=== PATIENT | male | born 2000 | race Hispanic/Latino ===

== ENCOUNTER 2021-10-30 15:22 | Inpatient (IN) | payer OTHER ==
[~2021-10-30] VITALS: Ht 149.9 cm; Wt 43.3 kg
[2021-10-30] MEDS ORDERED: SODIUM CHLORIDE 0.9% 1000ML 1,000 ML IV ONE (16:30)
[2021-10-30] MEDS ORDERED: ACETAMINOPHEN 325 MG SUPP PR ONE (16:30)
[2021-10-30] MEDS: SODIUM CHLORIDE 0.9% 1000ML 1,000 ML IV STA ×2 (16:30→17:58)
[2021-10-30 16:34] LABS: BASOPHILS % 0.2 % (0.0-1.0); HEMATOCRIT 50.8 % (38.2-49.6); HEMOGLOBIN 16.6 g/dL (14.0-18.0); LYMPHOCYTES # (AUTO) 0.6 (1.0-3.2); LYMPHOCYTES % 5.6 % (18.0-39.1); MEAN CORPUSCULAR HEMOGLOBIN 30.3 pg (28-32); MEAN CORPUSCULAR HGB CONC 32.7 g/dL (31-35); MEAN CORPUSCULAR VOLUME 92.9 fL (81-99); MONOCYTES # (AUTO) 0.7 (0.2-0.8); MONOCYTES % 6.4 % (4.4-11.3); NEUTROPHILS # (AUTO) 9.4 (2.1-6.9); NEUTROPHILS % 87.5 % (38.7-80.0); PLATELET COUNT 213 x10e3/uL (140-360); RED BLOOD COUNT 5.47 x10e6/uL (4.3-5.7); RED CELL DISTRIBUTION WIDTH 12.6 % (11.7-14.4)
[2021-10-30 16:44] LABS: INR 0.99
[2021-10-30 16:45] LABS: PARTIAL THROMBOPLASTIN TIME 33.5 seconds (23.8-35.5)
[2021-10-30 16:52] LABS: ALBUMIN 4.7 g/dL (3.5-5.0); ALBUMIN/GLOBULIN RATIO 1.2 (0.8-2.0); ANION GAP 18.7 mmol/L (8-16); CALCIUM 9.7 mg/dL (8.4-10.2); CREATININE, SERUM 0.87 mg/dL (0.72-1.25); POTASSIUM 4.7 mmol/L (3.5-5.1)
[2021-10-30 16:58] LABS: CREATINE KINASE MB 0.7 ng/mL (0-5.0)
[2021-10-30] MEDS ORDERED: SODIUM CHLORIDE 0.9% IV SCH (17:00)
[2021-10-30] MEDS ORDERED: SODIUM CHLORIDE 0.9% 1000ML 2,000 ML IV SCH (17:00)
[2021-10-30] MEDS ORDERED: SODIUM CHLORIDE 0.9% 1000ML 1,000 ML IV STA (17:12)
[2021-10-30 17:55] LABS: CLARITY,URINE SL CLOUDY (CLEAR); COLOR,URINE YELLOW (YELLOW); KETONES,URINE NEGATIVE (NEGATIVE); LEUKOCYTE ESTERASE ,URINE NEGATIVE (NEGATIVE); NITRITE,URINE NEGATIVE (NEGATIVE); PROTEIN,URINE DIPSTICK 2+ (NEGATIVE); URINE UROBILINOGEN 1 mg/dL (0.2 - 1)
[2021-10-30 18:03] LABS: AMORPHOUS SEDIMENT,URINE FEW (FEW); BACTERIA,URINE MODERATE /HPF; RBC,URINE 0-5 /HPF (0-5)
[2021-10-30] MEDS ORDERED: KETOROLAC TROMETHAMINE 30 MG/ML VIAL IV STA (20:01)
[2021-10-30] MEDS ORDERED: ONDANSETRON HCL INJ 2MG/ML 2ML 2 MG/ML VIAL IV STA (20:18)
[2021-10-30] MEDS ORDERED: ONDANSETRON HCL INJ 2MG/ML 2ML 2 MG/ML VIAL ONE (20:33)
[2021-10-30] MEDS ORDERED: IOPAMIDOL 370 MG/ML 100 ML INFUS..BTL INJ ONE (21:14)
[2021-10-30] MEDS ORDERED: PROMETHAZINE HCL (IM) 25 MG/ML VIAL IM ONE (21:52)
[2021-10-30] MEDS ORDERED: SODIUM CHLORIDE 0.9% 100 ML ONE (21:52)
[2021-10-30 23:20] VITALS: BP 116/68
[2021-10-30 23:58] VITALS: BP 116/68
[2021-10-30] MEDS ORDERED: PROAIR HFA INH8.5 GM IH (23:58)
[2021-10-30] MEDS ORDERED: BASE B,POLYETHYL1 GM PO (23:58)
[2021-10-30] MEDS ORDERED: BACLOFEN20 MG PO (23:58)
[2021-10-30] MEDS ORDERED: ONDANSETRON HCL8 MG PO (23:58)
[2021-10-30] MEDS ORDERED: DIAZEPAM2 MG PO (23:58)
[2021-10-30] MEDS ORDERED: MONTELUKAST SODI5 MG PO (23:58)
[2021-10-31] VITALS (8 sets, daily range): BP systolic 102–128; BP diastolic 56–92
[2021-10-31] MEDS ORDERED: ALBUTEROL2.5 MG/3 M NEB (00:05)
[2021-10-31] MEDS ORDERED: MELATONIN3 MG PO (00:06)
[2021-10-31] MEDS ORDERED: MELATONIN 5 MG TABLET PO PRN (01:00)
[2021-10-31] MEDS: SODIUM CHLORIDE 0.9% 1000ML 1,000 ML IV SCH ×2 (01:43→14:20)
[2021-10-31] MEDS: ONDANSETRON HCL INJ 2MG/ML 2ML 2 MG/ML VIAL IV PRN ×2 (01:49→08:37)
[2021-10-31] MEDS ORDERED: PROMETHAZINE 12.5MG/ NACL 0.9% 12.5 MG/50 ML BAG IV PRN (04:15)
[2021-10-31] MEDS: ACETAMINOPHEN 650 MG SUPP PR PRN ×3 (04:28→21:33)
[2021-10-31 07:28] LABS: BASOPHILS % 0.4 % (0.0-1.0); HEMATOCRIT 44.2 % (38.2-49.6); HEMOGLOBIN 14.8 g/dL (14.0-18.0); LYMPHOCYTES # (AUTO) 0.6 (1.0-3.2); LYMPHOCYTES % 5.7 % (18.0-39.1); MEAN CORPUSCULAR HEMOGLOBIN 30.1 pg (28-32); MEAN CORPUSCULAR HGB CONC 33.5 g/dL (31-35); MEAN CORPUSCULAR VOLUME 89.8 fL (81-99); MONOCYTES # (AUTO) 0.8 (0.2-0.8); MONOCYTES % 6.6 % (4.4-11.3); NEUTROPHILS # (AUTO) 9.8 (2.1-6.9); NEUTROPHILS % 86.9 % (38.7-80.0); PLATELET COUNT 181 x10e3/uL (140-360); RED BLOOD COUNT 4.92 x10e6/uL (4.3-5.7); RED CELL DISTRIBUTION WIDTH 12.7 % (11.7-14.4)
[2021-10-31 07:46] LABS: ALBUMIN 3.8 g/dL (3.5-5.0); ALBUMIN/GLOBULIN RATIO 1.2 (0.8-2.0); ANION GAP 15.5 mmol/L (8-16); CALCIUM 8.7 mg/dL (8.4-10.2); CREATININE, SERUM 0.63 mg/dL (0.72-1.25); POTASSIUM 3.5 mmol/L (3.5-5.1)
[2021-10-31] MEDS ORDERED: DOCUSATE SODIUM 100 MG CAP PO SCH (09:00)
[2021-10-31] MEDS ORDERED: SENNOSIDES 8.6 MG TAB PO SCH (09:00)
[2021-10-31] MEDS ORDERED: BISACODYL 10 MG SUPP PR PRN (09:30)
[2021-10-31] MEDS: METOCLOPRAMIDE HCL 10 MG/2ML VIAL IV SCH ×2 (09:46→16:25)
[2021-10-31] MEDS ORDERED: BISACODYL 10 MG SUPP PR ONE (10:00)
[2021-10-31] MEDS: DEXTROSE 5%/0.45% SOD CHL 1,000 ML IV SCH (15:43)
[2021-10-31] MEDS ORDERED: MONTELUKAST SODIUM 10 MG TAB PO SCH (21:00)
[2021-11-01] VITALS (22 sets, daily range): BP systolic 106–161; BP diastolic 42–97
[2021-11-01] MEDS: DEXTROSE 5%/0.45% SOD CHL 1,000 ML IV SCH ×3 (02:13→21:00)
[2021-11-01] MEDS: METOCLOPRAMIDE HCL 10 MG/2ML VIAL IV SCH ×3 (02:14→17:38)
[2021-11-01 07:19] LABS: BASOPHILS % 0.2 % (0.0-1.0); HEMATOCRIT 41.7 % (38.2-49.6); HEMOGLOBIN 14.2 g/dL (14.0-18.0); LYMPHOCYTES # (AUTO) 0.5 (1.0-3.2); LYMPHOCYTES % 5.5 % (18.0-39.1); MEAN CORPUSCULAR HEMOGLOBIN 29.8 pg (28-32); MEAN CORPUSCULAR HGB CONC 34.1 g/dL (31-35); MEAN CORPUSCULAR VOLUME 87.6 fL (81-99); MONOCYTES # (AUTO) 1.1 (0.2-0.8); MONOCYTES % 12.7 % (4.4-11.3); NEUTROPHILS % 81.4 % (38.7-80.0); PLATELET COUNT 175 x10e3/uL (140-360); RED BLOOD COUNT 4.76 x10e6/uL (4.3-5.7); RED CELL DISTRIBUTION WIDTH 12.4 % (11.7-14.4)
[2021-11-01 07:50] LABS: ALBUMIN 3.2 g/dL (3.5-5.0); ALBUMIN/GLOBULIN RATIO 1.2 (0.8-2.0); ANION GAP 13.2 mmol/L (8-16); CALCIUM 7.9 mg/dL (8.4-10.2); CREATININE, SERUM 0.63 mg/dL (0.72-1.25); MAGNESIUM 1.8 MG/DL (1.3-2.1); POTASSIUM 3.2 mmol/L (3.5-5.1)
[2021-11-01] MEDS: ACETAMINOPHEN 650 MG SUPP PR PRN (08:14)
[2021-11-01] MEDS ORDERED: POTASSIUM CHLORIDE 10MEQ/100ML 300 ML IV ONE (09:15)
[2021-11-01 11:12] LABS: AMYLASE 88 U/L (25-125); LIPASE 16 U/L (8-78)
[2021-11-01] MEDS: ACETAMINOPHEN 1000 MG/100 ML IV PRN ×2 (12:57→21:46)
[2021-11-01] MEDS: ALBUTEROL/IPRATROPIUM 3 ML NEB NEB PRN ×3 (13:20→23:00)
[2021-11-01 14:44] LABS: CREATINE KINASE 698 IU/L (30-200)
[2021-11-01 21:35] LABS: BASOPHILS % 0.1 % (0.0-1.0); HEMATOCRIT 42.2 % (38.2-49.6); HEMOGLOBIN 14.2 g/dL (14.0-18.0); LYMPHOCYTES % 14.4 % (18.0-39.1); MEAN CORPUSCULAR HEMOGLOBIN 30.3 pg (28-32); MEAN CORPUSCULAR HGB CONC 33.6 g/dL (31-35); MEAN CORPUSCULAR VOLUME 90.2 fL (81-99); MONOCYTES # (AUTO) 1.1 (0.2-0.8); MONOCYTES % 16.5 % (4.4-11.3); NEUTROPHILS # (AUTO) 4.7 (2.1-6.9); NEUTROPHILS % 68.7 % (38.7-80.0); PLATELET COUNT 170 x10e3/uL (140-360); RED BLOOD COUNT 4.68 x10e6/uL (4.3-5.7); RED CELL DISTRIBUTION WIDTH 12.3 % (11.7-14.4)
[2021-11-01 22:43] LABS: ALBUMIN 3.2 g/dL (3.5-5.0); ALBUMIN/GLOBULIN RATIO 1.1 (0.8-2.0); ANION GAP 13.1 mmol/L (8-16); CALCIUM 8.3 mg/dL (8.4-10.2); CREATININE, SERUM 0.61 mg/dL (0.72-1.25); POTASSIUM 3.1 mmol/L (3.5-5.1)
[2021-11-02] VITALS (57 sets, daily range): BP systolic 69–164; BP diastolic 29–125
[2021-11-02] MEDS: METOCLOPRAMIDE HCL 10 MG/2ML VIAL IV SCH ×3 (03:00→18:00)
[2021-11-02] MEDS: DEXTROSE 5%/0.45% SOD CHL 1,000 ML IV SCH ×2 (03:16→11:32)
[2021-11-02] MEDS: ACETAMINOPHEN 1000 MG/100 ML IV PRN (05:51)
[2021-11-02 06:38] LABS: BASOPHILS % 0.3 % (0.0-1.0); EOSINOPHILS % 0.2 % (0.0-6.0); HEMATOCRIT 39.7 % (38.2-49.6); HEMOGLOBIN 13.4 g/dL (14.0-18.0); LYMPHOCYTES # (AUTO) 1.2 (1.0-3.2); LYMPHOCYTES % 20.4 % (18.0-39.1); MEAN CORPUSCULAR HGB CONC 33.8 g/dL (31-35); MEAN CORPUSCULAR VOLUME 88.8 fL (81-99); MONOCYTES # (AUTO) 0.9 (0.2-0.8); MONOCYTES % 15.3 % (4.4-11.3); NEUTROPHILS # (AUTO) 3.8 (2.1-6.9); NEUTROPHILS % 63.6 % (38.7-80.0); RED BLOOD COUNT 4.47 x10e6/uL (4.3-5.7); RED CELL DISTRIBUTION WIDTH 12.1 % (11.7-14.4)
[2021-11-02 06:49] LABS: ALANINE AMINOTRANSFERASE 25 IU/L (0-55); ALBUMIN/GLOBULIN RATIO 0.9 (0.8-2.0); ALKALINE PHOSPHATASE 37 IU/L (40-150); ANION GAP 14.6 mmol/L (8-16); BLOOD UREA NITROGEN < 5 mg/dL (7-26); CALCIUM 8.1 mg/dL (8.4-10.2); CARBON DIOXIDE 22 mmol/L (22-29); CHLORIDE 103 mmol/L (98-107); CREATININE, SERUM 0.58 mg/dL (0.72-1.25); GLUCOSE 126 mg/dL (74-118); MAGNESIUM 1.7 MG/DL (1.3-2.1); SODIUM 137 mmol/L (136-145)
[2021-11-02 06:50] LABS: BUN/CREATININE RATIO 9 (6-25)
[2021-11-02 06:51] LABS: POTASSIUM 2.6 mmol/L (3.5-5.1)
[2021-11-02 07:08] LABS: PLATELET COUNT 143 x10e3/uL (140-360)
[2021-11-02] MEDS: POTASSIUM CHLORIDE 20MEQ/100ML 100 ML IV SCH ×2 (08:02→10:00)
[2021-11-02 09:00] LABS: PLATELET ESTIMATE ADEQUATE; PLATELET MORPHOLOGY COMMENT FEW EDTA CLUMPING; RBC MORPHOLOGY COMMENT NORMAL
[2021-11-02] MEDS ORDERED: METHYLPREDNISOLONE SOD SUCC 40 MG/ML VIAL 1ML IV NR ×2 (11:15→14:15)
[2021-11-02] MEDS: HEPARIN SOD (PORCINE) 5,000 UNIT/ML VIAL SC SCH ×2 (11:26→21:28)
[2021-11-02] MEDS ORDERED: MAGNESIUM SULF 1GRAM/DEXTROSE 100 ML IV ONE (12:00)
[2021-11-02] MEDS: ACETAMINOPHEN 650 MG SUPP PR PRN (12:55)
[2021-11-02] MEDS: ALBUTEROL/IPRATROPIUM 3 ML NEB NEB SCH ×2 (15:20→19:00)
[2021-11-02] MEDS ORDERED: POTASSIUM CHLORIDE 10MEQ/100ML 100 ML IV ONE (16:15)
[2021-11-02] MEDS ORDERED: SODIUM CHLORIDE 0.9% IV ONE (16:30)
[2021-11-02] MEDS ORDERED: ACETAMINOPHEN 1000 MG/100 ML IV PRN (16:30)
[2021-11-02] MEDS ORDERED: Morphine 2mg Syringe 2 MG/ML SYR IV ONE (16:30)
[2021-11-02] MEDS: Vancomycin IV 1 GM in SODIUM CHLORIDE 0.9% 250ML 250 ML IV SCH (17:00)
[2021-11-02 17:14] LABS: ABG HCO3 21 mmol/L (22-26); ABG PCO2 31 mmHg (35-45); ABG PH 7.43 (7.35-7.45); ABG PO2 82 mmHg (80-105); ABG TCO2 22
[2021-11-02] MEDS: POTASSIUM CHLORIDE 10MEQ/100ML 100 ML IV SCH ×3 (17:49→19:45)
[2021-11-02] MEDS ORDERED: [UNRECOGNIZED DRUG - OTHER] ONE (19:13)
[2021-11-02] MEDS ORDERED: ROCURONIUM ONE (19:13)
[2021-11-02] MEDS ORDERED: ROCURONIUM BROMIDE 1 ML IV ONE (19:15)
[2021-11-02] MEDS: FENTANYL 2000MCG/NS 250 250 ML IV PRN (19:27)
[2021-11-02] MEDS ORDERED: PROPOFOL IV EMULSION 10MG/ML 100 ML ONE (19:30)
[2021-11-02] MEDS ORDERED: ETOMIDATE 2 MG/ML 10 ML INJ IV STA (19:33)
[2021-11-02] MEDS ORDERED: PROPOFOL IV EMULSION 10MG/ML 100 ML IV PRN (19:45)
[2021-11-02] MEDS ORDERED: ROCURONIUM BROMIDE 10 MG/ML 5ML VIAL IV ONE (19:45)
[2021-11-02 20:20] LABS: ABG HCO3 22 mmol/L (22-26); ABG PCO2 40 mmHg (35-45); ABG PH 7.36 (7.35-7.45); ABG PO2 102 mmHg (80-105); ABG TCO2 23
[2021-11-02] MEDS: METHYLPREDNISOLONE SOD SUCC 40 MG/ML VIAL 1ML IV SCH ×2 (21:29→21:30)
[2021-11-02] MEDS: BUDESONIDE 0.5MG/2 ML NEB INH SCH (22:10)
[2021-11-02] MEDS: IPRATROPIUM BROMIDE 0.02% 2.5 ML NEB NEB SCH (22:15)
[2021-11-02] MEDS: MIDAZOLAM HCL 5MG/ML 10ML VIAL 100 ML IV PRN (23:06)
[2021-11-03] VITALS (90 sets, daily range): BP systolic 76–146; BP diastolic 37–121
[2021-11-03 00:22] LABS: ANION GAP 13.7 mmol/L (8-16); BLOOD UREA NITROGEN < 5 mg/dL (7-26); CALCIUM 7.3 mg/dL (8.4-10.2); CARBON DIOXIDE 19 mmol/L (22-29); CHLORIDE 107 mmol/L (98-107); CREATININE, SERUM 0.54 mg/dL (0.72-1.25); GLUCOSE 108 mg/dL (74-118); SODIUM 136 mmol/L (136-145)
[2021-11-03 00:31] LABS: BUN/CREATININE RATIO 9 (6-25); POTASSIUM 3.7 mmol/L (3.5-5.1)
[2021-11-03] MEDS: DEXTROSE 5%/0.45% SOD CHL 1,000 ML IV SCH ×2 (01:42→17:02)
[2021-11-03] MEDS: METOCLOPRAMIDE HCL 10 MG/2ML VIAL IV SCH ×3 (01:57→18:27)
[2021-11-03] MEDS: IPRATROPIUM BROMIDE 0.02% 2.5 ML NEB NEB SCH ×4 (02:00→20:30)
[2021-11-03] MEDS: LEVALBUTEROL HCL SOLN NEBU 0.63 MG/3 ML NEB INH SCH ×4 (02:00→19:00)
[2021-11-03] MEDS: Vancomycin IV 1 GM in SODIUM CHLORIDE 0.9% 250ML 250 ML IV SCH ×3 (04:49→21:51)
[2021-11-03] MEDS: METHYLPREDNISOLONE SOD SUCC 40 MG/ML VIAL 1ML IV SCH ×2 (05:01→20:42)
[2021-11-03 06:08] LABS: HEMATOCRIT 31.8 % (38.2-49.6); HEMOGLOBIN 10.4 g/dL (14.0-18.0); LYMPHOCYTES # (AUTO) 0.7 (1.0-3.2); MEAN CORPUSCULAR HEMOGLOBIN 29.8 pg (28-32); MEAN CORPUSCULAR HGB CONC 32.7 g/dL (31-35); MEAN CORPUSCULAR VOLUME 91.1 fL (81-99); MONOCYTES # (AUTO) 0.4 (0.2-0.8); MONOCYTES % 9.6 % (4.4-11.3); NEUTROPHILS # (AUTO) 2.8 (2.1-6.9); NEUTROPHILS % 72.1 % (38.7-80.0); PLATELET COUNT 168 x10e3/uL (140-360); RED BLOOD COUNT 3.49 x10e6/uL (4.3-5.7); RED CELL DISTRIBUTION WIDTH 12.5 % (11.7-14.4)
[2021-11-03 06:54] LABS: ALANINE AMINOTRANSFERASE 20 IU/L (0-55); ALBUMIN 2.3 g/dL (3.5-5.0); ALBUMIN/GLOBULIN RATIO 0.8 (0.8-2.0); ALKALINE PHOSPHATASE 34 IU/L (40-150); ANION GAP 12.2 mmol/L (8-16); BLOOD UREA NITROGEN < 5 mg/dL (7-26); CALCIUM 7.5 mg/dL (8.4-10.2); CARBON DIOXIDE 21 mmol/L (22-29); CHLORIDE 111 mmol/L (98-107); CREATININE, SERUM 0.51 mg/dL (0.72-1.25); GLUCOSE 129 mg/dL (74-118); MAGNESIUM 2.1 MG/DL (1.3-2.1); POTASSIUM 3.2 mmol/L (3.5-5.1); SODIUM 141 mmol/L (136-145)
[2021-11-03 06:55] LABS: BUN/CREATININE RATIO 10 (6-25)
[2021-11-03] MEDS: BUDESONIDE 0.5MG/2 ML NEB INH SCH ×2 (07:45→19:00)
[2021-11-03] MEDS ORDERED: POTASSIUM CHLORIDE 20MEQ/100ML 100 ML IV ONE ×2 (09:15→11:30)
[2021-11-03] MEDS: HEPARIN SOD (PORCINE) 5,000 UNIT/ML VIAL SC SCH (09:58)
[2021-11-03] MEDS: MIDAZOLAM HCL 5MG/ML 10ML VIAL 100 ML IV PRN ×2 (14:00→18:28)
[2021-11-03] MEDS ORDERED: ACETAMINOPHEN 1000 MG/100 ML IV PRN (19:00)
[2021-11-03] MEDS ORDERED: SOD CHL IV SCH (20:00)
[2021-11-03] MEDS ORDERED: POTASSIUM CHLORIDE IV SCH (20:00)
[2021-11-03] MEDS ORDERED: DEXTROSE IV SCH (20:00)
[2021-11-03] MEDS ORDERED: D5NS/KCL 20MEQ 1,000 ML IV ONE (20:29)
[2021-11-04] VITALS (23 sets, daily range): BP systolic 96–137; BP diastolic 51–89
[2021-11-04] MEDS: METOCLOPRAMIDE HCL 10 MG/2ML VIAL IV SCH (02:22)
[2021-11-04] MEDS: MIDAZOLAM HCL 5MG/ML 10ML VIAL 100 ML IV PRN ×2 (05:29→21:44)
[2021-11-04 05:48] LABS: BASOPHILS % 0.2 % (0.0-1.0); EOSINOPHILS % 0.2 % (0.0-6.0); HEMATOCRIT 35.9 % (38.2-49.6); HEMOGLOBIN 12.2 g/dL (14.0-18.0); LYMPHOCYTES # (AUTO) 1.7 (1.0-3.2); LYMPHOCYTES % 21.1 % (18.0-39.1); MEAN CORPUSCULAR HEMOGLOBIN 29.7 pg (28-32); MEAN CORPUSCULAR VOLUME 87.3 fL (81-99); MONOCYTES # (AUTO) 0.6 (0.2-0.8); MONOCYTES % 7.5 % (4.4-11.3); NEUTROPHILS # (AUTO) 5.7 (2.1-6.9); NEUTROPHILS % 70.6 % (38.7-80.0); PLATELET COUNT 253 x10e3/uL (140-360); RED BLOOD COUNT 4.11 x10e6/uL (4.3-5.7); RED CELL DISTRIBUTION WIDTH 12.7 % (11.7-14.4)
[2021-11-04 06:13] LABS: ALANINE AMINOTRANSFERASE 34 IU/L (0-55); ALBUMIN 2.6 g/dL (3.5-5.0); ALBUMIN/GLOBULIN RATIO 0.8 (0.8-2.0); ALKALINE PHOSPHATASE 41 IU/L (40-150); ANION GAP 14.2 mmol/L (8-16); BLOOD UREA NITROGEN < 5 mg/dL (7-26); CALCIUM 7.9 mg/dL (8.4-10.2); CARBON DIOXIDE 23 mmol/L (22-29); CHLORIDE 106 mmol/L (98-107); GLUCOSE 111 mg/dL (74-118); MAGNESIUM 1.7 MG/DL (1.3-2.1); POTASSIUM 3.2 mmol/L (3.5-5.1); SODIUM 140 mmol/L (136-145)
[2021-11-04 06:14] LABS: BUN/CREATININE RATIO 8 (6-25)
[2021-11-04] MEDS: LEVALBUTEROL HCL SOLN NEBU 0.63 MG/3 ML NEB INH SCH ×4 (08:25→18:47)
[2021-11-04] MEDS: IPRATROPIUM BROMIDE 0.02% 2.5 ML NEB NEB SCH ×4 (08:25→18:47)
[2021-11-04] MEDS: BUDESONIDE 0.5MG/2 ML NEB INH SCH ×2 (08:25→19:35)
[2021-11-04] MEDS: METHYLPREDNISOLONE SOD SUCC 40 MG/ML VIAL 1ML IV SCH ×2 (08:49→21:08)
[2021-11-04 09:29] LABS: ABG HCO3 24 mmol/L (22-26); ABG PCO2 30 mmHg (35-45); ABG PH 7.52 (7.35-7.45); ABG PO2 53 mmHg (80-105); ABG TCO2 25
[2021-11-04] MEDS: Vancomycin IV 1 GM in SODIUM CHLORIDE 0.9% 250ML 250 ML IV SCH ×2 (10:58→22:53)
[2021-11-04] MEDS ORDERED: KCL 20 MEQ PACKET/ ORAL SOLN NG ONE (17:00)
[2021-11-04] MEDS: FENTANYL 2000MCG/NS 250 250 ML IV PRN (22:53)
[2021-11-05] VITALS (35 sets, daily range): BP systolic 88–136; BP diastolic 39–89
[2021-11-05] MEDS: LEVALBUTEROL HCL SOLN NEBU 0.63 MG/3 ML NEB INH SCH ×4 (00:24→19:27)
[2021-11-05] MEDS: IPRATROPIUM BROMIDE 0.02% 2.5 ML NEB NEB SCH ×4 (00:25→19:27)
[2021-11-05] MEDS: MIDAZOLAM HCL 5MG/ML 10ML VIAL 100 ML IV PRN ×4 (03:16→19:12)
[2021-11-05 04:57] LABS: BASOPHILS % 0.3 % (0.0-1.0); EOSINOPHILS # (AUTO) 0.2 (0.0-0.4); EOSINOPHILS % 1.6 % (0.0-6.0); LYMPHOCYTES % 29.8 % (18.0-39.1); MEAN CORPUSCULAR HEMOGLOBIN 29.6 pg (28-32); MEAN CORPUSCULAR HGB CONC 32.4 g/dL (31-35); MEAN CORPUSCULAR VOLUME 91.1 fL (81-99); MONOCYTES # (AUTO) 0.8 (0.2-0.8); MONOCYTES % 8.1 % (4.4-11.3); NEUTROPHILS % 58.5 % (38.7-80.0); PLATELET COUNT 257 x10e3/uL (140-360); RED BLOOD COUNT 4.06 x10e6/uL (4.3-5.7); RED CELL DISTRIBUTION WIDTH 12.9 % (11.7-14.4)
[2021-11-05 05:16] LABS: ALBUMIN 2.8 g/dL (3.5-5.0); ALBUMIN/GLOBULIN RATIO 0.8 (0.8-2.0); ANION GAP 16.4 mmol/L (8-16); CALCIUM 8.5 mg/dL (8.4-10.2); CREATININE, SERUM 0.58 mg/dL (0.72-1.25); MAGNESIUM 1.7 MG/DL (1.3-2.1); POTASSIUM 3.4 mmol/L (3.5-5.1)
[2021-11-05] MEDS: BUDESONIDE 0.5MG/2 ML NEB INH SCH ×2 (06:57→19:20)
[2021-11-05] MEDS ORDERED: ACETAMINOPHEN 1000 MG/100 ML IV PRN (08:00)
[2021-11-05] MEDS: METHYLPREDNISOLONE SOD SUCC 40 MG/ML VIAL 1ML IV SCH (08:57)
[2021-11-05] MEDS ORDERED: ALTEPLASE RECOMBINANT 2 MG/2 ML VIAL IV PRN (10:15)
[2021-11-05] MEDS: Vancomycin IV 1 GM in SODIUM CHLORIDE 0.9% 250ML 250 ML IV SCH ×2 (11:16→23:02)
[2021-11-05 11:21] LABS: BAND NEUTROPHILS % (MANUAL) 1 %; EOSINOPHILS % (MANUAL) 1 % (0-7); LYMPHOCYTES % (MANUAL) 27 % (19-48); MONOCYTES % (MANUAL) 11 % (3.4-9.0); NEUTROPHILS % (MANUAL) 59 % (40-74); PLATELET ESTIMATE ADEQUATE; PLATELET MORPHOLOGY COMMENT NORMAL; RBC MORPHOLOGY COMMENT NORMAL
[2021-11-05 12:19] LABS: ABG HCO3 25 mmol/L (22-26); ABG PCO2 36 mmHg (35-45); ABG PH 7.45 (7.35-7.45); ABG PO2 57 mmHg (80-105); ABG TCO2 26
[2021-11-05] MEDS ORDERED: POTASSIUM CHLORIDE 20 MEQ TAB CR PO ONE (12:30)
[2021-11-05] MEDS: ACYCLOVIR SODIUM 500 MG in SODIUM CHLORIDE 0.9% 100 ML IV SCH ×2 (14:57→23:01)
[2021-11-06] VITALS (55 sets, daily range): BP systolic 82–134; BP diastolic 31–101
[2021-11-06] MEDS: MIDAZOLAM HCL 5MG/ML 10ML VIAL 100 ML IV PRN (02:16)
[2021-11-06] MEDS: LEVALBUTEROL HCL SOLN NEBU 0.63 MG/3 ML NEB INH SCH ×4 (03:20→19:55)
[2021-11-06] MEDS: IPRATROPIUM BROMIDE 0.02% 2.5 ML NEB NEB SCH ×4 (03:20→19:55)
[2021-11-06] MEDS: ACYCLOVIR SODIUM 500 MG in SODIUM CHLORIDE 0.9% 100 ML IV SCH (06:26)
[2021-11-06 06:31] LABS: BASOPHILS % 0.2 % (0.0-1.0); EOSINOPHILS # (AUTO) 0.2 (0.0-0.4); EOSINOPHILS % 2.9 % (0.0-6.0); HEMATOCRIT 30.7 % (38.2-49.6); LYMPHOCYTES # (AUTO) 2.2 (1.0-3.2); LYMPHOCYTES % 26.6 % (18.0-39.1); MEAN CORPUSCULAR HGB CONC 32.6 g/dL (31-35); MEAN CORPUSCULAR VOLUME 92.2 fL (81-99); MONOCYTES # (AUTO) 0.6 (0.2-0.8); MONOCYTES % 6.8 % (4.4-11.3); NEUTROPHILS # (AUTO) 4.9 (2.1-6.9); PLATELET COUNT 255 x10e3/uL (140-360); RED BLOOD COUNT 3.33 x10e6/uL (4.3-5.7); RED CELL DISTRIBUTION WIDTH 13.2 % (11.7-14.4)
[2021-11-06] MEDS: BUDESONIDE 0.5MG/2 ML NEB INH SCH ×2 (06:50→19:55)
[2021-11-06 06:58] LABS: ALBUMIN 2.1 g/dL (3.5-5.0); ALBUMIN/GLOBULIN RATIO 0.7 (0.8-2.0); ANION GAP 15.8 mmol/L (8-16); CALCIUM 7.2 mg/dL (8.4-10.2); CREATININE, SERUM 0.51 mg/dL (0.72-1.25); MAGNESIUM 1.5 MG/DL (1.3-2.1)
[2021-11-06 07:00] LABS: POTASSIUM 2.8 mmol/L (3.5-5.1)
[2021-11-06 09:18] LABS: EOSINOPHILS % (MANUAL) 4 % (0-7); LYMPHOCYTES % (MANUAL) 21 % (19-48); METAMYELOCYTES % (MANUAL) 1 % (0-0); MONOCYTES % (MANUAL) 9 % (3.4-9.0); MYELOCYTES % (MANUAL) 3 % (0-0); NEUTROPHILS % (MANUAL) 62 % (40-74); PLATELET ESTIMATE ADEQUATE; PLATELET MORPHOLOGY COMMENT NORMAL; RBC MORPHOLOGY COMMENT NORMAL
[2021-11-06] MEDS: METHYLPREDNISOLONE SOD SUCC 40 MG/ML VIAL 1ML IV SCH (09:18)
[2021-11-06] MEDS ORDERED: POTASSIUM CHLORIDE 20 MEQ TAB CR PO ONE ×2 (09:30→12:00)
[2021-11-06] MEDS ORDERED: KCL 20 MEQ PACKET/ ORAL SOLN NG ONE ×2 (10:00→12:00)
[2021-11-06] MEDS ORDERED: MAGNESIUM SULFATE 2GM/50ML 50 ML IV ONE (10:00)
[2021-11-06] MEDS ORDERED: KCL 20 MEQ PACKET/ ORAL SOLN PO ONE (10:00)
[2021-11-06] MEDS: Vancomycin IV 1 GM in SODIUM CHLORIDE 0.9% 250ML 250 ML IV SCH ×2 (10:47→21:47)
[2021-11-06] MEDS: ACYCLOVIR SODIUM INJ 500 MG in SODIUM CHLORIDE 0.9% 100 ML IV SCH ×2 (14:00→21:47)
[2021-11-06 15:49] LABS: ANION GAP 13.8 mmol/L (8-16); CALCIUM 7.8 mg/dL (8.4-10.2); CREATININE, SERUM 0.51 mg/dL (0.72-1.25); POTASSIUM 4.8 mmol/L (3.5-5.1)
[2021-11-06] MEDS: FENTANYL 2000MCG/NS 250 250 ML IV PRN (19:06)
[2021-11-06] MEDS: DEXMEDETOMIDINE 400MCG/NS100ML 100 ML IV PRN (20:50)
[2021-11-07] VITALS (55 sets, daily range): BP systolic 106–148; BP diastolic 46–86
[2021-11-07] MEDS: LEVALBUTEROL HCL SOLN NEBU 0.63 MG/3 ML NEB INH SCH ×4 (01:55→19:35)
[2021-11-07] MEDS: IPRATROPIUM BROMIDE 0.02% 2.5 ML NEB NEB SCH ×4 (01:55→19:35)
[2021-11-07] MEDS: FENTANYL 2000MCG/NS 250 250 ML IV PRN ×2 (03:21→12:37)
[2021-11-07] MEDS: DEXMEDETOMIDINE 400MCG/NS100ML 100 ML IV PRN ×2 (03:22→20:56)
[2021-11-07] MEDS: ACYCLOVIR SODIUM INJ 500 MG in SODIUM CHLORIDE 0.9% 100 ML IV SCH ×3 (05:37→22:05)
[2021-11-07] MEDS: BUDESONIDE 0.5MG/2 ML NEB INH SCH ×2 (07:15→19:35)
[2021-11-07] MEDS: METHYLPREDNISOLONE SOD SUCC 40 MG/ML VIAL 1ML IV SCH (08:14)
[2021-11-07 09:25] LABS: BASOPHILS % 0.2 % (0.0-1.0); EOSINOPHILS # (AUTO) 0.4 (0.0-0.4); EOSINOPHILS % 3.8 % (0.0-6.0); HEMATOCRIT 35.1 % (38.2-49.6); HEMOGLOBIN 11.4 g/dL (14.0-18.0); LYMPHOCYTES % 21.2 % (18.0-39.1); MEAN CORPUSCULAR HGB CONC 32.5 g/dL (31-35); MEAN CORPUSCULAR VOLUME 92.4 fL (81-99); MONOCYTES # (AUTO) 0.9 (0.2-0.8); MONOCYTES % 9.8 % (4.4-11.3); NEUTROPHILS # (AUTO) 5.7 (2.1-6.9); PLATELET COUNT 311 x10e3/uL (140-360); RED CELL DISTRIBUTION WIDTH 13.1 % (11.7-14.4)
[2021-11-07] MEDS ORDERED: MIDAZOLAM HCL 2 MG/2 ML VIAL ONE (09:47)
[2021-11-07 09:55] LABS: ALBUMIN 2.7 g/dL (3.5-5.0); ALBUMIN/GLOBULIN RATIO 0.8 (0.8-2.0); ANION GAP 13.7 mmol/L (8-16); CALCIUM 8.5 mg/dL (8.4-10.2); CREATININE, SERUM 0.55 mg/dL (0.72-1.25); POTASSIUM 3.7 mmol/L (3.5-5.1)
[2021-11-07] MEDS: Vancomycin IV 1 GM in SODIUM CHLORIDE 0.9% 250ML 250 ML IV SCH (10:22)
[2021-11-07] MEDS ORDERED: MIDAZOLAM HCL 2 MG/2 ML VIAL IV ONE (10:30)
[2021-11-07] MEDS ORDERED: POTASSIUM CHLORIDE 20MEQ/100ML 100 ML IV ONE (11:00)
[2021-11-07] MEDS: ACETAMINOPHEN 1000 MG/100 ML IV PRN ×2 (11:03→22:39)
[2021-11-07] MEDS ORDERED: MIDAZOLAM HCL 5MG/ML 10ML VIAL 100 ML IV ONE (11:23)
[2021-11-07] MEDS: SODIUM CHLORIDE 0.9% 1000ML 1,000 ML IV SCH ×2 (12:12→12:59)
[2021-11-07] MEDS: CLONAZEPAM 0.5 MG TAB PO SCH ×3 (12:28→21:00)
[2021-11-07] MEDS ORDERED: MIDAZOLAM HCL 5MG/ML 10ML VIAL 100 ML IV PRN (13:00)
[2021-11-07] MEDS: BACLOFEN 10 MG TAB PO SCH ×2 (14:33→22:05)
[2021-11-07] MEDS: QUETIAPINE FUMARATE 25 MG TAB PO SCH (17:30)
[2021-11-08] VITALS (81 sets, daily range): BP systolic 95–142; BP diastolic 43–101
[2021-11-08] MEDS: FENTANYL 2000MCG/NS 250 250 ML IV PRN (00:40)
[2021-11-08] MEDS: DEXMEDETOMIDINE 400MCG/NS100ML 100 ML IV PRN (00:40)
[2021-11-08] MEDS: IPRATROPIUM BROMIDE 0.02% 2.5 ML NEB NEB SCH ×5 (01:30→23:45)
[2021-11-08] MEDS: LEVALBUTEROL HCL SOLN NEBU 0.63 MG/3 ML NEB INH SCH ×5 (01:30→23:45)
[2021-11-08] MEDS: ACYCLOVIR SODIUM INJ 500 MG in SODIUM CHLORIDE 0.9% 100 ML IV SCH ×3 (05:48→22:59)
[2021-11-08] MEDS: BUDESONIDE 0.5MG/2 ML NEB INH SCH ×2 (06:45→19:00)
[2021-11-08 06:56] LABS: BASOPHILS % 0.2 % (0.0-1.0); EOSINOPHILS # (AUTO) 0.3 (0.0-0.4); EOSINOPHILS % 3.4 % (0.0-6.0); HEMATOCRIT 33.2 % (38.2-49.6); HEMOGLOBIN 10.9 g/dL (14.0-18.0); LYMPHOCYTES # (AUTO) 2.8 (1.0-3.2); MEAN CORPUSCULAR HEMOGLOBIN 30.3 pg (28-32); MEAN CORPUSCULAR HGB CONC 32.8 g/dL (31-35); MEAN CORPUSCULAR VOLUME 92.2 fL (81-99); MONOCYTES # (AUTO) 1.1 (0.2-0.8); MONOCYTES % 11.7 % (4.4-11.3); NEUTROPHILS # (AUTO) 4.5 (2.1-6.9); PLATELET COUNT 338 x10e3/uL (140-360)
[2021-11-08 07:39] LABS: ALBUMIN 2.8 g/dL (3.5-5.0); ALBUMIN/GLOBULIN RATIO 0.8 (0.8-2.0); ANION GAP 16.3 mmol/L (8-16); CALCIUM 8.6 mg/dL (8.4-10.2); CREATININE, SERUM 0.54 mg/dL (0.72-1.25); MAGNESIUM 1.9 MG/DL (1.3-2.1); POTASSIUM 3.3 mmol/L (3.5-5.1)
[2021-11-08 07:52] LABS: AMYLASE 172 U/L (25-125); LIPASE 40 U/L (8-78)
[2021-11-08] MEDS: CLONAZEPAM 0.5 MG TAB PO SCH ×3 (09:00→21:02)
[2021-11-08] MEDS: QUETIAPINE FUMARATE 25 MG TAB PO SCH ×3 (09:39→17:26)
[2021-11-08] MEDS: PREDNISONE 10 MG TAB PO SCH (09:39)
[2021-11-08] MEDS: BACLOFEN 10 MG TAB PO SCH ×3 (09:39→21:02)
[2021-11-08] MEDS ORDERED: CLONAZEPAM 0.5 MG TAB PO ONE (09:40)
[2021-11-08] MEDS: KCL 20 MEQ PACKET/ ORAL SOLN NG PRN (09:42)
[2021-11-08] MEDS ORDERED: ACETAMINOPHEN 1000 MG/100 ML IV PRN (12:45)
[2021-11-08 12:48] LABS: ABG HCO3 27 mmol/L (22-26); ABG PCO2 41 mmHg (35-45); ABG PH 7.42 (7.35-7.45); ABG PO2 77 mmHg (80-105); ABG TCO2 28
[2021-11-08] MEDS: ACETAMINOPHEN 1000 MG/100 ML IV PRN ×3 (13:20→19:41)
[2021-11-08] MEDS ORDERED: KETOROLAC TROMETHAMINE 30 MG/ML VIAL IV ONE (18:30)
[2021-11-08] MEDS ORDERED: Vancomycin IV 1 GM in SODIUM CHLORIDE 0.9% 250ML 250 ML IV STA (20:40)
[2021-11-09] VITALS (52 sets, daily range): BP systolic 112–165; BP diastolic 47–101
[2021-11-09] MEDS: METOCLOPRAMIDE HCL 10 MG/2ML VIAL IV SCH ×2 (03:59→11:33)
[2021-11-09] MEDS: ACYCLOVIR SODIUM INJ 500 MG in SODIUM CHLORIDE 0.9% 100 ML IV SCH (06:11)
[2021-11-09] MEDS: LEVALBUTEROL HCL SOLN NEBU 0.63 MG/3 ML NEB INH SCH ×4 (06:40→23:38)
[2021-11-09] MEDS: IPRATROPIUM BROMIDE 0.02% 2.5 ML NEB NEB SCH ×4 (06:40→23:38)
[2021-11-09] MEDS: BUDESONIDE 0.5MG/2 ML NEB INH SCH ×2 (06:50→19:18)
[2021-11-09 06:53] LABS: BASOPHILS % 0.3 % (0.0-1.0); EOSINOPHILS # (AUTO) 0.1 (0.0-0.4); HEMOGLOBIN 12.3 g/dL (14.0-18.0); LYMPHOCYTES % 15.8 % (18.0-39.1); MEAN CORPUSCULAR HEMOGLOBIN 29.9 pg (28-32); MEAN CORPUSCULAR HGB CONC 33.2 g/dL (31-35); MONOCYTES # (AUTO) 1.1 (0.2-0.8); NEUTROPHILS % 71.4 % (38.7-80.0); PLATELET COUNT 392 x10e3/uL (140-360); RED BLOOD COUNT 4.11 x10e6/uL (4.3-5.7)
[2021-11-09 07:16] LABS: % IRON SATURATION 9 % (15-50); IRON 25 ug/dL (65-175); TOTAL IRON BINDING CAPACITY 294 ug/dL (261-478); TRANSFERRIN 210 mg/dL (174-364)
[2021-11-09] MEDS ORDERED: KETOROLAC TROMETHAMINE 30 MG/ML VIAL IV STA (07:22)
[2021-11-09 08:04] LABS: ALBUMIN 3.1 g/dL (3.5-5.0); ALBUMIN/GLOBULIN RATIO 0.8 (0.8-2.0); ANION GAP 19.5 mmol/L (8-16); CALCIUM 8.7 mg/dL (8.4-10.2); CREATININE, SERUM 0.61 mg/dL (0.72-1.25); POTASSIUM 3.5 mmol/L (3.5-5.1)
[2021-11-09] MEDS: ACETAMINOPHEN 1000 MG/100 ML IV PRN (08:04)
[2021-11-09] MEDS: QUETIAPINE FUMARATE 25 MG TAB PO SCH ×2 (08:50→16:31)
[2021-11-09] MEDS: PREDNISONE 10 MG TAB PO SCH (08:51)
[2021-11-09] MEDS: BACLOFEN 10 MG TAB PO SCH ×3 (08:51→21:12)
[2021-11-09] MEDS: CLONAZEPAM 0.5 MG TAB PO SCH (08:51)
[2021-11-09] MEDS: IRON SUCROSE 100 MG in SODIUM CHLORIDE 0.9% 100 ML IV SCH (11:56)
[2021-11-09 16:53] LABS: FREE THYROXINE INDEX 2.8395 (1.4-3.8); THYROID STIMULATING HORMONE 1.057 uIU/mL (0.350-4.940)
[2021-11-09 17:02] LABS: ABG HCO3 23 mmol/L (22-26); ABG PCO2 34 mmHg (35-45); ABG PH 7.44 (7.35-7.45); ABG PO2 68 mmHg (80-105); ABG TCO2 24
[2021-11-09 17:31] LABS: HIV 1&2 AB SCREEN ***REACTIVE*** (NONREACTIVE)
[2021-11-09] MEDS: SULFAMETHOXAZOLE IV SCH (20:00)
[2021-11-09] MEDS: TRIMETHOPRIM IV SCH (20:00)
[2021-11-09] MEDS: DEXTROSE 5% IV SCH (20:00)
[2021-11-10] VITALS (24 sets, daily range): BP systolic 128–156; BP diastolic 53–83
[2021-11-10] MEDS: TRIMETHOPRIM IV SCH (04:00)
[2021-11-10] MEDS: SULFAMETHOXAZOLE IV SCH (04:00)
[2021-11-10] MEDS: DEXTROSE 5% IV SCH (04:00)
[2021-11-10 05:53] LABS: BASOPHILS # (AUTO) 0.1 (0.0-0.1); BASOPHILS % 0.3 % (0.0-1.0); EOSINOPHILS # (AUTO) 0.1 (0.0-0.4); EOSINOPHILS % 0.7 % (0.0-6.0); HEMATOCRIT 40.3 % (38.2-49.6); HEMOGLOBIN 13.1 g/dL (14.0-18.0); LYMPHOCYTES % 11.6 % (18.0-39.1); MEAN CORPUSCULAR HEMOGLOBIN 29.8 pg (28-32); MEAN CORPUSCULAR HGB CONC 32.5 g/dL (31-35); MEAN CORPUSCULAR VOLUME 91.8 fL (81-99); MONOCYTES # (AUTO) 1.4 (0.2-0.8); MONOCYTES % 8.3 % (4.4-11.3); NEUTROPHILS # (AUTO) 13.2 (2.1-6.9); NEUTROPHILS % 76.8 % (38.7-80.0); PLATELET COUNT 442 x10e3/uL (140-360); RED BLOOD COUNT 4.39 x10e6/uL (4.3-5.7); RED CELL DISTRIBUTION WIDTH 13.3 % (11.7-14.4)
[2021-11-10 06:26] LABS: ANION GAP 22.8 mmol/L (8-16); CALCIUM 9.3 mg/dL (8.4-10.2); CREATININE, SERUM 0.66 mg/dL (0.72-1.25); POTASSIUM 3.8 mmol/L (3.5-5.1)
[2021-11-10 06:50] LABS: ALBUMIN 3.5 g/dL (3.5-5.0); ALBUMIN/GLOBULIN RATIO 0.8 (0.8-2.0); MAGNESIUM 2.3 MG/DL (1.3-2.1)
[2021-11-10] MEDS: BUDESONIDE 0.5MG/2 ML NEB INH SCH ×2 (07:01→18:57)
[2021-11-10] MEDS: IPRATROPIUM BROMIDE 0.02% 2.5 ML NEB NEB SCH ×3 (07:01→18:40)
[2021-11-10] MEDS: LEVALBUTEROL HCL SOLN NEBU 0.63 MG/3 ML NEB INH SCH ×3 (07:01→18:40)
[2021-11-10] MEDS: ACETAMINOPHEN 650 MG SUPP PR PRN (07:49)
[2021-11-10] MEDS: BACLOFEN 10 MG TAB PO SCH ×3 (08:58→21:45)
[2021-11-10] MEDS: PREDNISONE 10 MG TAB PO SCH (08:58)
[2021-11-10] MEDS: QUETIAPINE FUMARATE 25 MG TAB PO SCH (08:58)
[2021-11-10] MEDS: IRON SUCROSE 100 MG in SODIUM CHLORIDE 0.9% 100 ML IV SCH (10:02)
[2021-11-10] MEDS ORDERED: TRIMETHOPRIM/SULFAMETHOXAZOLE 160-800 MG TAB PO SCH (10:45)
[2021-11-10] MEDS: ACETAMINOPHEN 325 MG TAB PO PRN (18:41)
[2021-11-11] VITALS (22 sets, daily range): BP systolic 99–168; BP diastolic 65–134
[2021-11-11] MEDS: IPRATROPIUM BROMIDE 0.02% 2.5 ML NEB NEB SCH ×4 (01:35→19:45)
[2021-11-11] MEDS: LEVALBUTEROL HCL SOLN NEBU 0.63 MG/3 ML NEB INH SCH ×4 (01:35→19:45)
[2021-11-11] MEDS: ACETAMINOPHEN 325 MG TAB PO PRN (05:17)
[2021-11-11] MEDS: BUDESONIDE 0.5MG/2 ML NEB INH SCH ×2 (07:45→19:45)
[2021-11-11] MEDS: BACLOFEN 10 MG TAB PO SCH ×3 (08:43→20:17)
[2021-11-11 08:52] LABS: BASOPHILS # (AUTO) 0.1 (0.0-0.1); BASOPHILS % 0.4 % (0.0-1.0); EOSINOPHILS # (AUTO) 0.2 (0.0-0.4); EOSINOPHILS % 1.5 % (0.0-6.0); HEMATOCRIT 43.3 % (38.2-49.6); HEMOGLOBIN 13.9 g/dL (14.0-18.0); LYMPHOCYTES % 12.1 % (18.0-39.1); MEAN CORPUSCULAR HEMOGLOBIN 30.2 pg (28-32); MEAN CORPUSCULAR HGB CONC 32.1 g/dL (31-35); MEAN CORPUSCULAR VOLUME 94.1 fL (81-99); MONOCYTES # (AUTO) 1.2 (0.2-0.8); MONOCYTES % 7.4 % (4.4-11.3); NEUTROPHILS # (AUTO) 12.6 (2.1-6.9); NEUTROPHILS % 76.8 % (38.7-80.0); PLATELET COUNT 408 x10e3/uL (140-360); RED CELL DISTRIBUTION WIDTH 13.6 % (11.7-14.4)
[2021-11-11 09:24] LABS: ALBUMIN 3.8 g/dL (3.5-5.0); ALBUMIN/GLOBULIN RATIO 0.8 (0.8-2.0); ANION GAP 21.4 mmol/L (8-16); CALCIUM 9.9 mg/dL (8.4-10.2); CREATININE, SERUM 0.67 mg/dL (0.72-1.25); POTASSIUM 4.4 mmol/L (3.5-5.1)
[2021-11-11] MEDS: IRON SUCROSE 100 MG in SODIUM CHLORIDE 0.9% 100 ML IV SCH (10:41)
[2021-11-11] MEDS: ACETAMINOPHEN 650 MG SUPP PR PRN (15:06)
[2021-11-11] MEDS: DIAZEPAM 2 MG TAB PO SCH (16:10)
[2021-11-12] VITALS (22 sets, daily range): BP systolic 113–148; BP diastolic 61–90
[2021-11-12] MEDS: ACETAMINOPHEN 650 MG SUPP PR PRN (02:25)
[2021-11-12] MEDS: LEVALBUTEROL HCL SOLN NEBU 0.63 MG/3 ML NEB INH SCH ×4 (03:50→19:00)
[2021-11-12] MEDS: IPRATROPIUM BROMIDE 0.02% 2.5 ML NEB NEB SCH ×4 (03:52→19:00)
[2021-11-12] MEDS: MONTELUKAST SODIUM 10 MG TAB PO SCH (04:05)
[2021-11-12] MEDS ORDERED: METOCLOPRAMIDE HCL 10 MG/2ML VIAL IV SCH (06:00)
[2021-11-12] MEDS: METOCLOPRAMIDE HCL 10 MG/2ML VIAL IV SCH ×4 (06:05→23:54)
[2021-11-12] MEDS: BUDESONIDE 0.5MG/2 ML NEB INH SCH ×2 (07:00→19:00)
[2021-11-12 08:08] LABS: BASOPHILS # (AUTO) 0.1 (0.0-0.1); BASOPHILS % 0.4 % (0.0-1.0); EOSINOPHILS # (AUTO) 0.3 (0.0-0.4); EOSINOPHILS % 2.4 % (0.0-6.0); HEMOGLOBIN 13.3 g/dL (14.0-18.0); LYMPHOCYTES % 14.4 % (18.0-39.1); MEAN CORPUSCULAR HEMOGLOBIN 30.2 pg (28-32); MEAN CORPUSCULAR HGB CONC 32.4 g/dL (31-35); MEAN CORPUSCULAR VOLUME 93.2 fL (81-99); MONOCYTES # (AUTO) 1.2 (0.2-0.8); MONOCYTES % 8.5 % (4.4-11.3); NEUTROPHILS # (AUTO) 10.2 (2.1-6.9); NEUTROPHILS % 73.3 % (38.7-80.0); PLATELET COUNT 384 x10e3/uL (140-360); RED CELL DISTRIBUTION WIDTH 13.3 % (11.7-14.4)
[2021-11-12] MEDS: DIAZEPAM 2 MG TAB PO SCH ×2 (08:22→16:24)
[2021-11-12] MEDS: BACLOFEN 10 MG TAB PO SCH ×3 (08:22→21:04)
[2021-11-12 08:23] LABS: ANION GAP 17.8 mmol/L (8-16); CALCIUM 9.3 mg/dL (8.4-10.2); CREATININE, SERUM 0.53 mg/dL (0.72-1.25); POTASSIUM 3.8 mmol/L (3.5-5.1)
[2021-11-12] MEDS ORDERED: MAGNESIUM HYDROXIDE 30 ML UDC NG ONE (11:00)
[2021-11-12] MEDS: GUAIFENESIN 200 MG/10 ML UDC NG PRN (16:35)
[2021-11-12] MEDS: ACETAMINOPHEN 325 MG/10 ML UDC PO PRN (16:36)
[2021-11-13] VITALS (8 sets, daily range): BP systolic 98–124; BP diastolic 52–85
[2021-11-13] MEDS: IPRATROPIUM BROMIDE 0.02% 2.5 ML NEB NEB SCH ×3 (01:05→13:00)
[2021-11-13] MEDS: LEVALBUTEROL HCL SOLN NEBU 0.63 MG/3 ML NEB INH SCH ×3 (01:05→13:00)
[2021-11-13] MEDS: METOCLOPRAMIDE HCL 10 MG/2ML VIAL IV SCH ×3 (05:32→17:53)
[2021-11-13] MEDS: BUDESONIDE 0.5MG/2 ML NEB INH SCH ×2 (06:30→19:20)
[2021-11-13] MEDS: MONTELUKAST SODIUM 10 MG TAB PO SCH (08:32)
[2021-11-13] MEDS: DIAZEPAM 2 MG TAB PO SCH ×2 (08:32→16:29)
[2021-11-13] MEDS: BACLOFEN 10 MG TAB PO SCH ×3 (08:32→20:54)
[2021-11-13] MEDS ORDERED: LIDOCAINE HCL 2% LOCAL INJ 5 ML SDV VIAL INJ ONE (11:51)
[2021-11-13] MEDS ORDERED: PROPOFOL IV EMULSION 10 MG/ML 20 ML VIAL ONE (11:51)
[2021-11-13] MEDS ORDERED: DEXTROSE 5%/0.45% SOD CHL 1,000 ML IV ONE (17:00)
[2021-11-13] MEDS: HYDROMORPHONE 1MG/1ML INJ IV PRN ×2 (17:11→23:00)
[2021-11-14] VITALS (8 sets, daily range): BP systolic 108–144; BP diastolic 57–76
[2021-11-14] MEDS: IPRATROPIUM BROMIDE 0.02% 2.5 ML NEB NEB SCH ×4 (00:57→19:55)
[2021-11-14] MEDS: LEVALBUTEROL HCL SOLN NEBU 0.63 MG/3 ML NEB INH SCH ×5 (01:10→19:55)
[2021-11-14] MEDS: METOCLOPRAMIDE HCL 10 MG/2ML VIAL IV SCH ×4 (06:00→18:37)
[2021-11-14] MEDS: BUDESONIDE 0.5MG/2 ML NEB INH SCH ×2 (06:05→19:55)
[2021-11-14] MEDS: HYDROMORPHONE 1MG/1ML INJ IV PRN ×3 (06:05→16:54)
[2021-11-14] MEDS: DEXTROSE 5%/0.45% SOD CHL 1,000 ML IV SCH ×2 (07:43→18:37)
[2021-11-14] MEDS: DIAZEPAM 2 MG TAB PO SCH ×2 (07:43→16:32)
[2021-11-14] MEDS: MONTELUKAST SODIUM 10 MG TAB PO SCH (07:43)
[2021-11-14] MEDS: BACLOFEN 10 MG TAB PO SCH ×3 (07:43→21:19)
[2021-11-14] MEDS: METOPROLOL TARTRATE 25 MG TAB PO SCH ×2 (09:30→16:32)
[2021-11-14] MEDS ORDERED: MIDAZOLAM HCL 2 MG/2 ML VIAL ONE (12:39)
[2021-11-14] MEDS ORDERED: FENTANYL CITRATE/PF 100MCG/2 ML INJ ONE (12:39)
[2021-11-14] MEDS: ACETAMINOPHEN 650 MG SUPP PR PRN (15:46)
[2021-11-14] MEDS: ACETAMINOPHEN 325 MG/10 ML UDC PO PRN (21:20)
[2021-11-15] VITALS (9 sets, daily range): BP systolic 106–134; BP diastolic 65–95
[2021-11-15] MEDS ORDERED: BENZONATATE 100 MG CAP PO PRN (00:30)
[2021-11-15] MEDS: IPRATROPIUM BROMIDE 0.02% 2.5 ML NEB NEB SCH ×4 (02:55→20:20)
[2021-11-15] MEDS: LEVALBUTEROL HCL SOLN NEBU 0.63 MG/3 ML NEB INH SCH ×4 (02:55→20:20)
[2021-11-15] MEDS: DEXTROSE 5%/0.45% SOD CHL 1,000 ML IV SCH ×3 (05:13→22:59)
[2021-11-15] MEDS: ACETAMINOPHEN 325 MG/10 ML UDC PO PRN ×2 (05:15→21:09)
[2021-11-15] MEDS: METOCLOPRAMIDE HCL 10 MG/2ML VIAL IV SCH ×5 (05:37→23:00)
[2021-11-15] MEDS: BUDESONIDE 0.5MG/2 ML NEB INH SCH ×2 (07:10→20:20)
[2021-11-15] MEDS: MONTELUKAST SODIUM 10 MG TAB PO SCH (08:33)
[2021-11-15] MEDS: BENZTROPINE MESYLATE 1 MG TAB PEG SCH ×3 (08:33→17:00)
[2021-11-15] MEDS: BACLOFEN 10 MG TAB PO SCH ×4 (08:33→21:01)
[2021-11-15] MEDS: DIAZEPAM 2 MG TAB PO SCH ×3 (08:35→17:00)
[2021-11-15] MEDS: METOPROLOL TARTRATE 25 MG TAB PO SCH ×3 (08:35→17:00)
[2021-11-15] MEDS: GUAIFENESIN 200 MG/10 ML UDC NG PRN ×2 (08:36→21:01)
[2021-11-15] MEDS ORDERED: GUAIFENESIN/CODEINE 5 ML LIQD PO PRN (10:15)
[2021-11-16] VITALS (8 sets, daily range): BP systolic 113–137; BP diastolic 69–82
[2021-11-16] MEDS ORDERED: BISACODYL 10 MG SUPP PR ONE (01:45)
[2021-11-16] MEDS ORDERED: MAGNESIUM HYDROXIDE 30 ML UDC PEG ONE (01:45)
[2021-11-16] MEDS: LEVALBUTEROL HCL SOLN NEBU 0.63 MG/3 ML NEB INH SCH ×4 (01:55→19:55)
[2021-11-16] MEDS: IPRATROPIUM BROMIDE 0.02% 2.5 ML NEB NEB SCH ×4 (01:55→19:55)
[2021-11-16] MEDS: ACETAMINOPHEN 650 MG SUPP PR PRN (02:19)
[2021-11-16] MEDS: METOCLOPRAMIDE HCL 10 MG/2ML VIAL IV SCH ×3 (05:01→16:25)
[2021-11-16] MEDS: BUDESONIDE 0.5MG/2 ML NEB INH SCH ×2 (07:07→20:05)
[2021-11-16 07:26] LABS: BASOPHILS % 0.5 % (0.0-1.0); EOSINOPHILS # (AUTO) 0.1 (0.0-0.4); EOSINOPHILS % 1.2 % (0.0-6.0); HEMATOCRIT 33.7 % (38.2-49.6); HEMOGLOBIN 10.9 g/dL (14.0-18.0); LYMPHOCYTES # (AUTO) 1.4 (1.0-3.2); LYMPHOCYTES % 15.8 % (18.0-39.1); MEAN CORPUSCULAR HEMOGLOBIN 29.9 pg (28-32); MEAN CORPUSCULAR HGB CONC 32.3 g/dL (31-35); MEAN CORPUSCULAR VOLUME 92.6 fL (81-99); MONOCYTES # (AUTO) 0.8 (0.2-0.8); MONOCYTES % 8.6 % (4.4-11.3); NEUTROPHILS # (AUTO) 6.5 (2.1-6.9); NEUTROPHILS % 73.4 % (38.7-80.0); PLATELET COUNT 309 x10e3/uL (140-360); RED BLOOD COUNT 3.64 x10e6/uL (4.3-5.7); RED CELL DISTRIBUTION WIDTH 13.2 % (11.7-14.4)
[2021-11-16 07:42] LABS: ANION GAP 18.4 mmol/L (8-16); CALCIUM 8.6 mg/dL (8.4-10.2); CREATININE, SERUM 0.53 mg/dL (0.72-1.25); POTASSIUM 3.4 mmol/L (3.5-5.1)
[2021-11-16] MEDS: DIAZEPAM 2 MG TAB PO SCH ×2 (09:26→16:25)
[2021-11-16] MEDS: BENZTROPINE MESYLATE 1 MG TAB PEG SCH ×2 (09:27→16:25)
[2021-11-16] MEDS: MONTELUKAST SODIUM 10 MG TAB PO SCH (09:27)
[2021-11-16] MEDS: IRON-VITAMIN-MINERAL CAPSULE PO SCH ×2 (09:27→16:25)
[2021-11-16] MEDS: BACLOFEN 10 MG TAB PO SCH ×3 (09:28→21:00)
[2021-11-16] MEDS: METOPROLOL TARTRATE 25 MG TAB PO SCH ×2 (09:28→16:26)
[2021-11-16] MEDS: KCL 20 MEQ PACKET/ ORAL SOLN NG PRN (09:36)
[2021-11-16] MEDS: DEXTROSE 5%/0.45% SOD CHL 1,000 ML IV SCH ×2 (10:02→23:09)
[2021-11-16] MEDS: ACETAMINOPHEN 325 MG/10 ML UDC PO PRN (16:27)
[2021-11-17] VITALS (7 sets, daily range): BP systolic 111–128; BP diastolic 53–79
[2021-11-17] MEDS: METOCLOPRAMIDE HCL 10 MG/2ML VIAL IV SCH ×4 (00:10→16:44)
[2021-11-17] MEDS: LEVALBUTEROL HCL SOLN NEBU 0.63 MG/3 ML NEB INH SCH ×4 (00:40→19:42)
[2021-11-17] MEDS: IPRATROPIUM BROMIDE 0.02% 2.5 ML NEB NEB SCH ×4 (00:40→19:42)
[2021-11-17] MEDS: DEXTROSE 5%/0.45% SOD CHL 1,000 ML IV SCH ×2 (02:40→13:00)
[2021-11-17] MEDS: BUDESONIDE 0.5MG/2 ML NEB INH SCH ×2 (07:20→19:42)
[2021-11-17] MEDS: MONTELUKAST SODIUM 10 MG TAB PO SCH (08:11)
[2021-11-17] MEDS: BENZTROPINE MESYLATE 1 MG TAB PEG SCH ×2 (08:11→16:44)
[2021-11-17] MEDS: BACLOFEN 10 MG TAB PO SCH ×3 (08:11→21:54)
[2021-11-17] MEDS: METOPROLOL TARTRATE 25 MG TAB PO SCH ×2 (08:12→16:45)
[2021-11-17] MEDS: IRON-VITAMIN-MINERAL CAPSULE PO SCH ×2 (08:12→16:44)
[2021-11-17] MEDS: DIAZEPAM 2 MG TAB PO SCH ×2 (08:12→16:44)
[2021-11-18] VITALS: BP 128/78
[2021-11-18] MEDS: METOCLOPRAMIDE HCL 10 MG/2ML VIAL IV SCH ×2 (00:15→06:40)
[2021-11-18] MEDS: IPRATROPIUM BROMIDE 0.02% 2.5 ML NEB NEB SCH ×2 (00:50→06:30)
[2021-11-18] MEDS: LEVALBUTEROL HCL SOLN NEBU 0.63 MG/3 ML NEB INH SCH ×2 (00:50→06:30)
[2021-11-18] MEDS: DEXTROSE 5%/0.45% SOD CHL 1,000 ML IV SCH ×2 (01:30→04:40)
[2021-11-18] MEDS: ACETAMINOPHEN 325 MG/10 ML UDC PO PRN (01:34)
[2021-11-18 04:00] VITALS: BP 113/80
[2021-11-18 06:25] LABS: BASOPHILS # (AUTO) 0.1 (0.0-0.1); BASOPHILS % 0.8 % (0.0-1.0); EOSINOPHILS # (AUTO) 0.3 (0.0-0.4); EOSINOPHILS % 3.7 % (0.0-6.0); HEMATOCRIT 34.1 % (38.2-49.6); HEMOGLOBIN 11.4 g/dL (14.0-18.0); LYMPHOCYTES % 28.1 % (18.0-39.1); MEAN CORPUSCULAR HEMOGLOBIN 30.3 pg (28-32); MEAN CORPUSCULAR HGB CONC 33.4 g/dL (31-35); MEAN CORPUSCULAR VOLUME 90.7 fL (81-99); MONOCYTES # (AUTO) 0.7 (0.2-0.8); MONOCYTES % 9.7 % (4.4-11.3); NEUTROPHILS # (AUTO) 4.1 (2.1-6.9); NEUTROPHILS % 57.1 % (38.7-80.0); PLATELET COUNT 271 x10e3/uL (140-360); RED BLOOD COUNT 3.76 x10e6/uL (4.3-5.7); RED CELL DISTRIBUTION WIDTH 13.5 % (11.7-14.4)
[2021-11-18] MEDS: BUDESONIDE 0.5MG/2 ML NEB INH SCH (06:30)
[2021-11-18 07:58] VITALS: BP 124/74
[2021-11-18 08:54] VITALS: BP 124/74
[2021-11-18] MEDS ORDERED: ONDANSETRON HCL 4 MG ORAL DISINTEGRATING TAB PO PRN (09:00)
[2021-11-18] MEDS: BENZTROPINE MESYLATE 1 MG TAB PEG SCH (10:48)
[2021-11-18] MEDS: IRON-VITAMIN-MINERAL CAPSULE PO SCH (10:48)
[2021-11-18] MEDS: BACLOFEN 10 MG TAB PO SCH (10:48)
[2021-11-18] MEDS: METOPROLOL TARTRATE 25 MG TAB PO SCH ×2 (10:49→10:51)
[2021-11-18] MEDS: MONTELUKAST SODIUM 10 MG TAB PO SCH (10:49)
[2021-11-18] MEDS: DIAZEPAM 2 MG TAB PO SCH (10:49)
[2021-11-18 12:16] VITALS: BP 123/72
[2021-11-18] MEDS ORDERED: METOCLOPRAMIDE HCL 10 MG TAB PO SCH (12:30)
[2021-11-18] MEDS ORDERED: PANTOPRAZOLE SOD 40 MG TABEC PO SCH (21:00)
== END 2021-11-18 13:11 | disposition home or self-care (01) | DRG 870 ==
LOC: ER 16:57 → ERHOLD 18:19 → MED/SURG3 23:09 → ICU 11-01 19:44 → MED/SURG3 11-12 20:19
PROVIDERS: ADMIT Internal Medicine; ATTEND Internal Medicine
PROC: 3E03329 Introduction of Other Anti-infective into Peripheral Vein, Percutaneous Approach (ICD-10-PCS; principal; 2021-10-30)
PROC: 5A1955Z Respiratory Ventilation, Greater than 96 Consecutive Hours (ICD-10-PCS; 2021-11-02)
PROC: 0BH17EZ Insertion of Endotracheal Airway into Trachea, Via Natural or Artificial Opening (ICD-10-PCS; 2021-11-02)
PROC: 02HV33Z Insertion of Infusion Device into Superior Vena Cava, Percutaneous Approach (ICD-10-PCS; 2021-11-02)
PROC: 0DH63UZ Insertion of Feeding Device into Stomach, Percutaneous Approach (ICD-10-PCS; 2021-11-13)
DX: A41.9 Sepsis, unspecified organism (principal); R53.2 Functional quadriplegia; J69.0 Pneumonitis due to inhalation of food and vomit; G93.41 Metabolic encephalopathy; J96.21 Acute and chronic respiratory failure with hypoxia; R65.21 Severe sepsis with septic shock; N39.0 Urinary tract infection, site not specified; K22.10 Ulcer of esophagus without bleeding; E87.2 Acidosis; K56.7 Ileus, unspecified; R65.20 Severe sepsis without septic shock; G80.9 Cerebral palsy, unspecified; R62.50 Unspecified lack of expected normal physiological development in childhood; H54.8 Legal blindness, as defined in USA; G24.9 Dystonia, unspecified; K29.70 Gastritis, unspecified, without bleeding; K44.9 Diaphragmatic hernia without obstruction or gangrene; R13.12 Dysphagia, oropharyngeal phase; Z20.822 Contact with and (suspected) exposure to COVID-19; Z83.3 Family history of diabetes mellitus; D75.1 Secondary polycythemia; E87.6 Hypokalemia; F79 Unspecified intellectual disabilities; E87.5 Hyperkalemia; R50.2 Drug induced fever; T36.8X5A Adverse effect of other systemic antibiotics, initial encounter; Y92.230 Patient room in hospital as the place of occurrence of the external cause; D64.9 Anemia, unspecified; R07.9 Chest pain, unspecified; R00.0 Tachycardia, unspecified
CPT/HCPCS: 31500; 36415; 36569; 36600; 43246; 51700; 71045; 71250; 74018; 74019; 74177; 74230; 80048; 80053; 80202; 81001; 82150; 82550; 82553; 82607; 82746; 82805; 82948; 83540; 83605; 83690; 83735; 84132; 84145; 84436; 84443; 84466; 84479; 84484; 85025; 85045; 85610; 85730; 86039; 86431; 86631; 86644; 86645; 86663; 86664; 86665; 86689; 86738; 86777; 86778; 86789; 87040; 87070; 87086; 87205; 87385; 87390; 87449; 87536; 93005; 93306; 94003; 94640; 94667; 94669; 94799; 96360; 96361; 99251; 99284; G0433; G0435; J0696; J1170; J1644; J1756; J1885; J2001; J2185; J2250; J2270; J2405; J2543; J2550; J2765; J2920; J2997; J3010; J3370; J3475; J3480; J7030; J7042; J7050; J7512; Q9967

== ENCOUNTER 2022-05-07 14:24 | Emergency (ER) | payer OTHER ==
[~2022-05-07] VITALS: Ht 149.9 cm; Wt 43.1 kg
[~2022-05-07 14:24] MED LIST: ALBUTEROL2.5 MG/3 M NEB; BACLOFEN20 MG PO; BASE B,POLYETHYL1 GM PO; DIAZEPAM2 MG PO; MELATONIN3 MG PO; MONTELUKAST SODI5 MG PO; ONDANSETRON HCL8 MG PO; PROAIR HFA INH8.5 GM IH
== END 2022-05-07 16:04 | disposition home or self-care (01) ==
LOC: ER 14:46
DX: Z43.1 Encounter for attention to gastrostomy (principal); G80.9 Cerebral palsy, unspecified; G24.9 Dystonia, unspecified; H54.8 Legal blindness, as defined in USA
CPT/HCPCS: 99282